=== PATIENT | male | born 1950 | race Two or more races ===

== ENCOUNTER 2023-04-30 03:04 | Emergency (ER) | payer MEDICARE, MEDICAID ==
[~2023-04-30] VITALS: Ht 175.3 cm; Wt 79.5 kg
[2023-04-30] MEDS ORDERED: DEXTROSE 50% SYRINGE 50 ML IV ONE ×2 (03:07→03:13)
== END 2023-04-30 05:13 ==
LOC: ER 03:04 → EDBD 03:04 → ER 05:13
DX: I46.9 Cardiac arrest, cause unspecified (principal); I47.20 Ventricular tachycardia, unspecified; I87.8 Other specified disorders of veins; I50.9 Heart failure, unspecified; E11.22 Type 2 diabetes mellitus with diabetic chronic kidney disease; N18.6 End stage renal disease
CPT/HCPCS: 31500; 92950; 99285; J7042